=== PATIENT | male | born 1950 ===

== ENCOUNTER → 2018-10-14 | Outpatient (CLI) | payer OTHER ==
[~2018-10-14] MED LIST: LIDOCAINE VISC 2% SOLN 15 ML UDC ONE; MUPIROCIN 2% OINT 22 GM TUBE ONE
== END ==
LOC: WCC 10:04
PROVIDERS: ATTEND Family Medicine
DX: S81.801A Unspecified open wound, right lower leg, initial encounter (principal); R60.0 Localized edema; L03.115 Cellulitis of right lower limb; W22.09XA Striking against other stationary object, initial encounter
CPT/HCPCS: 87071; 87075; 87186; 87205